=== PATIENT | female | born 1985 | race Hispanic/Latino ===

== ENCOUNTER → 2016-12-03 | Outpatient (CLI) | payer OTHER ==
--- NOTE | 2016-12-03 17:38 | REP ---
OB ULTRASOUND: Real-time sonographic evaluation of the gravid uterus is performed with transabdominal technique. There is a single living intrauterine gestation. The estimated gestational age is 23 weeks 5 days, EDC 03/27/2017. Today's measurements indicate appropriate growth. BPD 61 mm = 24 weeks 5 days, 70th percentile. HC 225 mm = 24 weeks 4 days, 67th percentile. AC 205 mm = 25 weeks 0 days, 77th percentile FL 44 mm = 24 weeks 4 days, 70th percentile HC/AC ratio 1.10, within normal range. Estimated weight 738 grams, 79th percentile. Cervix is closed and measures 4.6 cm in length. heart rate 145 beats per minute. SEEN/GROSSLY UNREMARKABLE Lateral ventricles yes Posterior fossa yes Upper lip yes Four-chamber heart yes LVOT yes RVOT yes Stomach yes Cord insertion yes Three vessel cord yes Kidneys yes Bladder yes Spine no position: Vertex. Placenta: Posterior and fundal, grade 1 with no previa or abruption. Amniotic fluid: Within normal limits. Right ovarian mass is again seen, which may represent a dermoid, measuring slightly greater than on the prior study, 13.1 x 12.6 x 7.9 cm. Signed by Naeem Thomas MD 12/07/2016 10:09 A
== END ==
LOC: M RAD 15:08
PROVIDERS: ATTEND Obstetrics & Gynecology
DX: Z34.02 Encounter for supervision of normal first pregnancy, second trimester (principal); Z36 Encounter for antenatal screening of mother

== ENCOUNTER → 2016-12-03 | Outpatient (REF) | payer OTHER | LOC: M LAB REF 12:07 | PROVIDERS: ATTEND Advanced Practice Midwife | DX: B35.0 Tinea barbae and tinea capitis (principal) ==

== ENCOUNTER → 2016-12-27 | Outpatient (CLI) | payer OTHER ==
[2016-12-27 13:59] LABS: BASO # 0.1 K/mm3 (0.0-0.2); BASO % 1.1 % (0.0-1.0); EOS # 0.1 K/mm3 (0.0-0.50); EOS % 0.6 % (0.0-3.0); LARGE UNSTAINED CELL # 0.1 K/mm3 (0.0-0.4); LARGE UNSTAINED CELL % 1.4 % (0.0-4.0); LYMPH # 2.1 K/mm3 (1.5-4.5); LYMPH % 22.3 % (24.0-44.0); MEAN CORPUSCULAR HEMOGLOBIN 29.7 pg (27.0-33.0); MEAN CORPUSCULAR HGB CONC 32.7 g/dl (32.0-36.5); MEAN CORPUSCULAR VOLUME 90.8 fl (80.0-96.0); MONO # 0.4 K/mm3 (0.0-0.8); MONO % 3.8 % (0.0-5.0); NEUTROPHILS # 6.4 K/mm3 (1.8-7.7); NEUTROPHILS % 70.8 % (36.0-66.0); PLATELET COUNT, AUTOMATED 224 k/mm3 (150-450); RED CELL DISTRIBUTION WIDTH 13.8 % (11.5-14.5)
== END ==
LOC: M LAB 11:32
PROVIDERS: ATTEND Obstetrics & Gynecology
DX: Z34.02 Encounter for supervision of normal first pregnancy, second trimester (principal); Z36 Encounter for antenatal screening of mother

== ENCOUNTER → 2017-01-03 | Outpatient (CLI) | payer OTHER | LOC: M LAB 07:35 | PROVIDERS: ATTEND Obstetrics & Gynecology | DX: O26.892 Other specified pregnancy related conditions, second trimester (principal); R73.02 Impaired glucose tolerance (oral) ==

== ENCOUNTER → 2017-02-25 | Outpatient (REF) | payer OTHER | LOC: M LAB REF 12:55 | PROVIDERS: ATTEND Advanced Practice Midwife | DX: Z34.03 Encounter for supervision of normal first pregnancy, third trimester (principal); Z36 Encounter for antenatal screening of mother ==

== ENCOUNTER → 2017-03-11 | Outpatient (CLI) | payer OTHER ==
[2017-03-11 14:59] LABS: MEAN CORPUSCULAR HGB CONC 33.5 g/dl (32.0-36.5); MEAN CORPUSCULAR VOLUME 89.4 fl (80.0-96.0); RED CELL DISTRIBUTION WIDTH 13.6 % (11.5-14.5)
[2017-03-11 15:22] LABS: ALT/SGPT 34 U/L (12-78); AST/SGOT 28 U/L (15-37); BILIRUBIN,TOTAL 0.2 MG/DL (0.2-1.0); CREATININE FOR GFR 0.46 MG/DL (0.55-1.02); GLOMERULAR FILTRATION RATE > 60.0 (>60)
[2017-03-14 13:21] LABS: URIC ACID 4.3 MG/DL (2.6-6.0); WHITE BLOOD COUNT 7.7 K/mm3 (4.0-10.0)
== END ==
LOC: M LAB 14:19
PROVIDERS: ATTEND Advanced Practice Midwife
DX: R03.0 Elevated blood-pressure reading, without diagnosis of hypertension (principal)

== ENCOUNTER 2017-03-23 05:49 | Inpatient (IN) | payer OTHER ==
[~2017-03-23] VITALS: Ht 154.9 cm; Wt 99.0 kg
[2017-03-23] VITALS (39 sets, daily range): BP systolic 100–153; BP diastolic 51–88
[2017-03-23] MEDS ORDERED: LR 1,000 ML IV SCH (06:45)
[2017-03-23 07:21] LABS: MEAN CORPUSCULAR HEMOGLOBIN 29.8 pg (27.0-33.0); MEAN CORPUSCULAR HGB CONC 33.3 g/dl (32.0-36.5); MEAN CORPUSCULAR VOLUME 89.6 fl (80.0-96.0); RED CELL DISTRIBUTION WIDTH 13.7 % (11.5-14.5); WHITE BLOOD COUNT 11.4 K/mm3 (4.0-10.0)
[2017-03-23] MEDS ORDERED: OXYTOCIN DRIP 30 UNITS in APPROPRIATE DILUENT 1 EA IV SCH ×2 (09:15→14:33)
--- NOTE | 2017-03-23 09:57 | HPE ---
DATE OF ADMISSION: 03/23/2017 Thea is a 31-year-old female 1, para 0 with an EDC of 03/27/2017, EGA 39-4/7 weeks gestation who presented to labor and delivery with complaints of contractions every 3-4 minutes. Upon evaluation in labor and delivery, she was found to be in labor. At this point, a decision was made for admission. Her records reviewed. She is O+, rubella immune, hepatitis negative, HIV negative, GC chlamydia negative, 1-hour sugar testing was within normal limits. Her GBS is negative. Last 2 weeks of her , she was found to have some elevated blood pressures, being monitored for PIH of mild preeclampsia. History significant for alopecia. PAST SURGICAL HISTORY: Denies. SOCIAL HISTORY: Denies any alcohol, drugs or cigarette smoking. REVIEW OF SYSTEMS: Unremarkable. with muscular dystrophy. MEDICATION: vitamins ALLERGIES: No known drug allergies. PHYSICAL EXAMINATION: Obese female in no acute distress. Abdomen: Soft, nontender, nondistended. Extremities: No clubbing, cyanosis or edema. Vaginal exam is 4-5 cm dilated, 100%, fetus in vertex position. Tracing reviewed. Category one tracing with contractions every minutes. ASSESSMENT: Intrauterine at 39 and 4/7 weeks gestation in active labor. PLAN: Admit to labor and delivery. Routine labs sent. Pain management discussed. Will continue to monitor. Anticipate delivery.
[2017-03-23] MEDS ORDERED: FENTANYL 2MCG/ML ROPIVACAINE 0.2% IN 0.9% NACL 200ML IVBAG As Ordered ONE (10:42)
[2017-03-23] MEDS ORDERED: FENTANYL/ROPIVACAINE/NACL BAG 200 ML EPIDURAL SCH (11:30)
[2017-03-23] MEDS ORDERED: LACTATED RINGER'S 1000 ML IV PRN (11:30)
[2017-03-23] MEDS ORDERED: ONDANSETRON 4MG/2ML VIAL (J2405) IV PRN (11:30)
[2017-03-23] MEDS ORDERED: NALOXONE INJ 0.4 MG/1 ML VIAL (J2310) IV PRN (11:30)
[2017-03-23] MEDS ORDERED: diphenhydrAMINE INJ 50MG/ML VIAL (J1200) IV PRN (11:30)
[2017-03-23] MEDS ORDERED: EPIDURAL COMMENT XX SCH (11:30)
[2017-03-23] MEDS ORDERED: EPIDURAL/PCA KEYS XX PRN (11:30)
[2017-03-23] MEDS ORDERED: ePHEDrine SULFATE 25 MG/5 ML(5MG/ML) SYRINGE IV PRN (11:30)
[2017-03-23] MEDS ORDERED: REFRIGERATOR IV KEYS XX PRN (11:30)
[2017-03-23] MEDS ORDERED: DIBUCAINE 1% OINTMENT 30GM TOP PRN (14:45)
[2017-03-23] MEDS ORDERED: RHOGAM 300 MCG (1500 IU) INJ (J2790) IM SCH (14:45)
[2017-03-23] MEDS ORDERED: IBUPROFEN 800 MG TAB PO PRN (14:45)
[2017-03-23] MEDS ORDERED: METHYLERGONOVINE MALEATE 0.2 MG TAB PO PRN (14:45)
[2017-03-23] MEDS ORDERED: DOCUSATE SODIUM 100 MG CAP PO PRN (14:45)
[2017-03-23] MEDS ORDERED: ACETAMINOPHEN 500 MG TAB PO PRN (14:45)
[2017-03-23] MEDS ORDERED: MEASLES,MUMPS,RUBELLA VACCINE INJ (MMR-II) (90707) SC SCH (14:45)
[2017-03-23 15:07] LABS: CORD GAS HCO3 A 24.2 MEQ/L; CORD GAS O2 SAT A 50.4 %; CORD GAS PCO2 A 55.9 mmHg; CORD GAS PH A 7.254 UNITS; CORD GAS PO2 A 24.7 mmHg; CORD GAS SBC A 19.9 MEQ/L; CORD GAS TCO2 A 25.9 MEQ/L
[2017-03-23 15:09] LABS: CORD GAS ABE V -2.7; CORD GAS HCO3 V 23.3 MEQ/L; CORD GAS O2 SAT V 69.7 %; CORD GAS PCO2 V 44.6 mmHg; CORD GAS PH V 7.336 UNITS; CORD GAS PO2 V 30.4 mmHg; CORD GAS SBC V 21.5 MEQ/L; CORD GAS TCO2 V 24.7 MEQ/L
[2017-03-23] MEDS: PRENATAL VITAMIN TAB PO SCH (17:35)
[2017-03-24 05:35] VITALS: BP 120/67
[2017-03-24] MEDS: PRENATAL VITAMIN TAB PO SCH (07:45)
[2017-03-24 18:00] VITALS: BP 132/61
[2017-03-24 22:00] VITALS: BP 123/71
[2017-03-25 05:51] VITALS: BP 138/73
[2017-03-25] MEDS: PRENATAL VITAMIN TAB PO SCH (07:50)
[2017-03-25] MEDS ORDERED: TYLE325T5 PO (09:40)
[2017-03-25] MEDS ORDERED: MOTR200T44 PO (09:40)
[2017-03-25] MEDS ORDERED: PRENTAB40 PO (09:40)
== END 2017-03-25 14:00 | disposition home or self-care (01) | DRG 560 ==
LOC: M LDO 05:49 → M LDI 06:27 → M OBS 18:11
PROVIDERS: ADMIT Obstetrics & Gynecology; ATTEND Obstetrics & Gynecology
PROC: 10E0XZZ Delivery of Products of Conception, External Approach (ICD-10-PCS; principal; 2017-03-25)
DX: O32.0XX0 Maternal care for unstable lie, not applicable or unspecified (principal); Z37.0 Single live birth; Z3A.39 39 weeks gestation of pregnancy; L65.9 Nonscarring hair loss, unspecified; O99.72 Diseases of the skin and subcutaneous tissue complicating childbirth

== ENCOUNTER → 2017-06-06 | Outpatient (CLI) | payer OTHER ==
[~2017-06-06] MED LIST: GASTROGRAFIN SOLUTION 30ML (Q9963) As Ordered ONE; IBUP1TAB7 PO; ISOVUE-370 76% 100ML VIAL (Q9967) As Ordered ONE; MOTR200T44 PO; PERCOCET PO; PRENTAB40 PO; TYLE325T5 PO
--- NOTE | 2017-06-06 23:21 | REP ---
Clinical: Abdominal mass. Technique: Axial contrast enhanced images from the lung bases to the pubic symphysis using oral and 100 ml Isovue 370 intravenous contrast material with coronal and sagittal re-formations. Comparison: None. Findings: A 9.4 cm mass is identified in the midline pelvis containing significant bulk fat, septations, and high density focus suggesting small tooth. Mass lesion compatible with teratoma. The uterus and adnexa are otherwise normal in appearance. No pelvic fluid. Bladder is normal. Lung bases are clear. Visualized heart and pericardium normal. Liver, spleen, pancreas, gallbladder, bilateral adrenal glands and kidneys are normal the enteric system is without obstruction or acute inflammatory process. Sigmoid diverticulosis noted without acute diverticulitis. No ascites. No adenopathy. No free air. Vasculature normal. Musculoskeletal structures are intact. 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 Signed by Wilfred Jordan MD 06/06/2017 11:13 P
== END ==
LOC: M RAD 12:35
PROVIDERS: ATTEND Family Medicine
DX: D48.7 Neoplasm of uncertain behavior of other specified sites (principal)

== ENCOUNTER → 2017-07-20 | Outpatient (CLI) | payer OTHER ==
[~2017-07-20] MED LIST changes: -GASTROGRAFIN SOLUTION 30ML (Q9963) As Ordered ONE; -ISOVUE-370 76% 100ML VIAL (Q9967) As Ordered ONE
--- NOTE | 2017-07-20 15:09 | REP ---
PELVIC ULTRASOUND: Real-time sonographic evaluation of pelvis performed utilizing transabdominal and endovaginal technique. Urinary bladder measures 7.5 x 8.0 x 8.2 cm. Uterus measures 7.9 x 5.2 x 5.8 cm. Endometrial thickness is 13 mm with no endometrial fluid collection. Left ovary is normal in size and echotexture measuring 2.9 x 2.4 x 2.4 cm. Right ovary is significantly enlarged with a huge heterogeneously hyperechoic mass consistent with a teratoma, the mass measuring 13.4 x 7.6 x 9.1 cm. Blood flow is seen in the ovaries with duplex Doppler evaluation, with no torsion. There is trace free fluid. IMPRESSION: Large teratoma right ovary, as discussed above, containing fat and calcifications. Signed by Naeem Thomas MD 07/20/2017 05:24 P
== END ==
LOC: M RAD 13:07
PROVIDERS: ATTEND Obstetrics & Gynecology
DX: D39.11 Neoplasm of uncertain behavior of right ovary (principal)

== ENCOUNTER 2017-07-27 12:05 | Day surgery (SDC) | payer MEDICAID, OTHER ==
[~2017-07-27] VITALS: Ht 154.9 cm; Wt 90.7 kg
[~2017-07-27 12:05] MED LIST changes: -IBUP1TAB7 PO; -PERCOCET PO
[2017-07-27] MEDS ORDERED: LR 1,000 ML IV ONE (12:15)
[2017-07-27 12:37] LABS: MEAN CORPUSCULAR HEMOGLOBIN 30.3 pg (27.0-33.0); MEAN CORPUSCULAR HGB CONC 33.5 g/dl (32.0-36.5); MEAN CORPUSCULAR VOLUME 90.6 fl (80.0-96.0); RED CELL DISTRIBUTION WIDTH 12.4 % (11.5-14.5); WHITE BLOOD COUNT 6.7 K/mm3 (4.0-10.0)
[2017-07-27 12:52] LABS: CONTROL LINE HCG INT CTR LINE PRESENT
[2017-07-27] MEDS ORDERED: PROPOFOL 200 MG/20 ML VIAL As Ordered ONE (14:37)
[2017-07-27] MEDS ORDERED: ROCURONIUM BROMIDE 50 MG/5 ML VIAL/SYRINGE As Ordered ONE (14:37)
[2017-07-27] MEDS ORDERED: NEOSTIGMINE 1MG/ML 5 ML SYRINGE (J2710) As Ordered ONE (14:37)
[2017-07-27] MEDS ORDERED: GLYCOPYRROLATE INJ 0.2 MG/ML 2 ML VIAL As Ordered ONE (14:37)
[2017-07-27] MEDS ORDERED: HYDROmorphone HCL 2 MG/ML 1ML VIAL (J1170) As Ordered ONE (14:37)
[2017-07-27] MEDS ORDERED: LIDOCAINE 2% INJ 100 MG/5 ML SDV (FOR ANES.) As Ordered ONE (14:37)
[2017-07-27] MEDS ORDERED: ONDANSETRON 4MG/2ML VIAL (J2405) As Ordered ONE (14:37)
[2017-07-27] MEDS ORDERED: fentaNYL 100 MCG/2 ML INJECTION (J3010) As Ordered ONE (14:37)
[2017-07-27] MEDS ORDERED: MIDAZOLAM INJ 2 MG/2 ML VIAL (J2250) As Ordered ONE (14:38)
[2017-07-27] MEDS ORDERED: BUPIVACAINE HCL 0.25% 30 ML VIAL As Ordered ONE (15:12)
[2017-07-27] MEDS ORDERED: dexameTHASONE 4 MG/ML 1ML VIAL (J1100) As Ordered ONE (15:24)
[2017-07-27] MEDS ORDERED: KETOROLAC 60 MG/2 ML VIAL (J1885) As Ordered ONE (17:16)
[2017-07-27] MEDS ORDERED: ONDANSETRON 4MG/2ML VIAL (J2405) IV PRN (18:30)
[2017-07-27] MEDS ORDERED: fentaNYL 100 MCG/2 ML INJECTION (J3010) IV PRN (18:30)
[2017-07-27] MEDS ORDERED: PERCOCET 5MG/325MG TAB PO PRN ×2 (18:30)
[2017-07-27] MEDS ORDERED: LR 1,000 ML IV SCH (18:30)
[2017-07-27] MEDS ORDERED: METOCLOPRAMIDE INJ 10MG/2ML VIAL (J2765) IV PRN (18:30)
[2017-07-27] MEDS ORDERED: HYDROmorphone HCL 1 MG/ML SYRINGE (J1170) IV PRN (18:30)
[2017-07-27] MEDS ORDERED: PROMETHAZINE INJ 25 MG/ML VIAL (J2550) IV PRN (18:30)
[2017-07-27] MEDS ORDERED: PERCOCET PO (19:56)
[2017-07-27] MEDS ORDERED: IBUP1TAB7 PO (19:59)
[2017-07-27 20:03] VITALS: BP 117/66
[2017-07-28] MEDS ORDERED: KETOROLAC 30 MG/ML VIAL (J1885) IV SCH
--- NOTE | 2017-07-28 05:45 | RO ---
DATE OF PROCEDURE: 07/28/2017 PREOPERATIVE DIAGNOSES: 1. Right dermoid cyst. 2. Satisfied parity and undesired fertility. POSTOPERATIVE DIAGNOSES: 1. Right dermoid cyst. 2. Satisfied parity and undesired fertility. PROCEDURE PERFORMED: 1. Diagnostic operative laparoscopy with right oophorectomy. 2. Bilateral salpingectomy. SURGEON: Sakina Huerta MD POLICE INVESTIGATOR: Amrik Anglin MD ANESTHESIA: General endotracheal anesthesia. ESTIMATED BLOOD LOSS: 10 mL. INFECTIOUS CLASSIFICATION: 1. SPECIMENS: 1. Right ovary with dermoid cyst. 2. Bilateral fallopian tubes. OPERATIVE FINDINGS: Patient with approximately a 15 cm right dermoid cyst. Otherwise, normal appearing pelvic anatomy, including uterus, left adnexa. DESCRIPTION OF OPERATION: After informed consent was obtained and written content was reviewed, the patient was then taken to the operating room where general endotracheal anesthesia obtained. She was then placed in lithotomy position and was prepped and draped in a normal sterile fashion. A time-out in the operating room was then performed identifying the patient, the procedure to be performed, as well as drug allergies. A bivalve speculum was then placed revealing the cervix. The anterior lip of the cervix was grasped with a single-tooth tenaculum. A Hulka tenaculum was advanced through the cervical os as means to manipulate the uterus. The single-tooth tenaculum as well as the speculum was removed. A Carlisle catheter was placed and set to gravity. Attention was turned to the patient's abdomen, where 0.25% Marcaine was infused in the umbilical region. An incision was made in this area and a 12 mm trocar and sleeve was advanced through this incision. The laparoscope was the replaced revealing intra-abdominal placement. Two lateral ports were placed parallel to the umbilicus. These were infused with 0.25% Marcaine. An incision was made in these areas and a 5 mm trocar was advanced through each one of these incision under direct visualization. The abdomen was then observed with the above noted findings. Next, the right adnexa was inspected and there appeared to be a right ovarian torsion. The right ovary was untorsed and it was placed on traction, and using harmonic scalpel device the infundibulopelvic ligament was then cauterized and ligated with good hemostasis noted. The uterine ovarian ligament was then cauterized and ligated with good hemostasis noted. The specimen was then placed in an Endo Catch bag and was brought to level of the umbilical incision where it was drained, morcellated and brought out through the umbilical port. Next, bilateral salpingectomy was performed. The right fallopian tube was placed on traction. It was transected at the level of the uterus. It was then cauterized and ligated with good hemostasis noted along the mesosalpinx, and this was brought out through the incision. In similar fashion, the left fallopian tube was placed on traction. It was cauterized and ligated at the level of the uterus. The mesosalpinx was then cauterized and ligated with good hemostasis noted, and that specimen was brought out through the umbilical incision. Specimens were inspected and noted be hemostatic. The pneumoperitoneum was then released. Trocars were removed. The fascia of the umbilical port site was then closed using #0 Vicryl. All three skin incisions were closed with #4-0 Monocryl and dressed with Dermabond. The Hulka tenaculum was removed. Tenaculum sites were inspected and noted to be hemostatic. Carlisle catheter was removed. The patient was then taken out of lithotomy position, was awakened from general anesthesia and taken to recovery in stable condition. Counts were correct.
== END 2017-07-27 20:28 | disposition home or self-care (01) ==
LOC: M SDC 12:05
PROVIDERS: ATTEND Obstetrics & Gynecology
DX: Z30.2 Encounter for sterilization (principal); D27.0 Benign neoplasm of right ovary; E66.9 Obesity, unspecified
CPT/HCPCS: 36415; 58661; 84703; 85027; 86850; 86900; 86901; 88307; J1100; J1170; J1885; J2250; J2405; J2710; J3010

== ENCOUNTER → 2017-12-05 | Outpatient (CLI) | payer OTHER | LOC: M SMT 14:43 | DX: R07.81 Pleurodynia (principal) | CPT/HCPCS: 71101 ==

== ENCOUNTER → 2018-08-09 | Outpatient (REF) | payer OTHER ==
[2018-08-09 12:37] LABS: C REACTIVE PROTEIN QUANTITATIV < 0.30 MG/DL (0.00-0.30)
[2018-08-09 12:37] LABS: CPK CREATINE PHOSPHOKINASE 496 U/L (26-192)
[2018-08-10 00:55] LABS: ERYTHROCYTE SEDIMENTATION RATE 11 mm/hr (0-20)
== END ==
LOC: M SFHCPLAZ 09:49
DX: M62.81 Muscle weakness (generalized) (principal)

== ENCOUNTER → 2018-08-25 | Outpatient (CLI) | payer BC, OTHER ==
[~2018-08-25] MED LIST changes: +E-Z-GAS II EFFERVESCENT PACKET (SODIUM BICARB./CITRIC ACID/SIMETHICONE) As Ordered; +E-Z-HD 98% w/w 340GM SUSP BTL As Ordered; +E-Z-PAQUE 96% w/w SUSP 176GM BTL As Ordered; -MOTR200T44 PO; -PRENTAB40 PO; -TYLE325T5 PO
== END ==
LOC: M RAD 09:01
DX: R07.89 Other chest pain (principal); K21.9 Gastro-esophageal reflux disease without esophagitis
CPT/HCPCS: 74241

== ENCOUNTER → 2018-09-01 | Outpatient (REF) | payer MEDICAID ==
[2018-09-01 13:07] LABS: BASO % 0.6 % (0.0-1.0); EOS # 0.1 10^3/uL (0.0-0.50); HEMATOCRIT 41.3 % (36.0-47.0); HEMOGLOBIN 13.1 g/dl (12.0-15.5); IMMATURE GRANULOCYTE % 0.3 % (0-3.0); LYMPH # 2.4 10^3/uL (1.5-4.5); LYMPH % 36.9 % (24.0-44.0); MEAN CORPUSCULAR HGB CONC 31.7 g/dl (32.0-36.5); MEAN CORPUSCULAR VOLUME 91.6 fl (80.0-96.0); MONO # 0.4 10^3/uL (0.0-0.8); MONO % 5.9 % (0.0-5.0); NEUTROPHILS # 3.5 10^3/uL (1.8-7.7); NEUTROPHILS % 54.3 % (36.0-66.0); PLATELET COUNT, AUTOMATED 272 10^3/uL (150-450); RED BLOOD COUNT 4.51 10^6/uL (4.00-5.40); WHITE BLOOD COUNT 6.5 10^3/uL (4.0-10.0)
[2018-09-01 13:36] LABS: ERYTHROCYTE SEDIMENTATION RATE 9 mm/hr (0-20)
[2018-09-01 13:46] LABS: ALBUMIN 3.8 GM/DL (3.2-5.2); ALBUMIN/GLOBULIN RATIO 1.15 (1.00-1.93); ALKALINE PHOSPHATASE 50 U/L (45-117); ALT/SGPT 29 U/L (12-78); ANION GAP 8 MEQ/L (8-16); AST/SGOT 22 U/L (7-37); BILIRUBIN,TOTAL 0.3 MG/DL (0.2-1.0); BLOOD UREA NITROGEN 12 MG/DL (7-18); CALCIUM LEVEL 8.7 MG/DL (8.5-10.1); CARBON DIOXIDE LEVEL 25 MEQ/L (21-32); CHLORIDE LEVEL 110 MEQ/L (98-107); CREATININE FOR GFR 0.51 MG/DL (0.55-1.30); GLOMERULAR FILTRATION RATE > 60.0 (>60); GLUCOSE, FASTING 82 MG/DL (70-100); POTASSIUM SERUM 4.5 MEQ/L (3.5-5.1); RHEUMATOID FACTOR QUANT < 10.0 IU/ML (<15.0); SODIUM LEVEL 143 MEQ/L (136-145); TOTAL PROTEIN 7.1 GM/DL (6.4-8.2)
[2018-09-01 14:01] LABS: ESTIMATED AVERAGE GLUCOSE 100 MG/DL (60-110); HEMOGLOBIN A1c 5.1 %
[2018-09-01 15:48] LABS: FOLATE 15.9 NG/ML
[2018-09-05 00:07] LABS: COPPER PLASMA 114 ug/dL (72-166); LEAD BLOOD ADULT <1 ug/dL (0-4); MERCURY LEVEL None Detected ug/L (0.0-14.9); VITAMIN E(ALPHA TOCOPHEROL) 10.4 mg/L (5.9-19.4)
[2018-09-05 09:52] LABS: DRVV SCREEN 38.7 SEC
[2018-09-05 13:44] LABS: ALBUMIN % 57.7 % (55.8-66.1); ALPHA-1-GLOBULIN % 3.8 % (2.9-4.9); ALPHA-1-GLOBULINS 0.27 GM/DL (0.17-0.41); ALPHA-2-GLOBULINS 0.67 GM/DL (0.42-0.99); ALPHA-2-GLOBULINS % 9.5 % (7.1-11.8); BETA-1-GLOBULINS 0.48 GM/DL (0.28-0.60); BETA-1-GLOBULINS % 6.7 % (4.7-7.2); BETA-2-GLOBULINS 0.36 GM/DL (0.19-0.55); GAMMA GLOBULIN % 17.3 % (11.1-18.8); GAMMA GLOBULINS 1.23 GM/DL (0.65-1.58)
[2018-09-06 08:48] LABS: ANTINUCLEAR ANTIBODIES DIRECT Negative (Negative); VITAMIN B1 LEVEL WHOLE BLOOD 155.7 nmol/L (66.5-200.0); VITAMIN B6,PYRIDOXAL PHOSPHATE 12.7 ug/L (2.0-32.8)
== END ==
LOC: M LABNEURO 09:53
DX: G62.9 Polyneuropathy, unspecified (principal)